=== PATIENT | male | born 1935 | race African-American/Black ===

== ENCOUNTER → 2019-02-12 | Outpatient (CLI) | payer MEDICARE, OTHER ==
[~2019-02-12] MED LIST: ASPI-1393 PO; CHOL400C8 PO; CLOP75TA4 PO; FINA5TAB3 PO; OMEG500C4 PO; SIMV20TA2 PO; VALS1TAB34 PO
== END | disposition home or self-care (01) ==
LOC: RAD 09:45
PROVIDERS: ATTEND Specialist
DX: R05 Cough (principal)
CPT/HCPCS: 71045